=== PATIENT | female | born 1975 | race African-American/Black ===

== ENCOUNTER 2021-02-17 13:13 | Emergency (ER) | payer MEDICAID ==
[~2021-02-17] VITALS: Ht 180.3 cm; Wt 159.1 kg
[2021-02-17 13:14] VITALS: BP 145/88
[2021-02-17] MEDS ORDERED: FLUT1AER IH (13:20)
[2021-02-17] MEDS ORDERED: IPRA3AMP24 NEB (13:20)
[2021-02-17] MEDS ORDERED: FLUT1BLS3 IH (13:20)
== END 2021-02-17 14:56 | disposition home or self-care (01) ==
LOC: EMS 13:17
DX: J44.1 Chronic obstructive pulmonary disease with (acute) exacerbation (principal)
CPT/HCPCS: 99282; 99283